=== PATIENT | female | born 1945 | race Caucasian/White ===

== ENCOUNTER 2016-09-28 13:56 | Emergency (ER) | payer MEDICARE ==
[2016-09-28 14:47] LABS: HEMOGLOBIN 12.7 gm/dl (12.3-15.3); RED BLOOD COUNT 4.14 M/UL (4.00-5.10); WHITE BLOOD COUNT 6.2 K/UL (4.5-11.0)
[2016-09-28 15:16] LABS: BUN/CREATININE RATIO 14 (0-10)
== END 2016-09-28 17:40 | disposition home or self-care (01) ==
LOC: ER1 13:56 → EDBD 13:56 → ER1 17:40
PROVIDERS: Family Medicine
DX: I10 Essential (primary) hypertension (principal); Z79.899 Other long term (current) drug therapy
CPT/HCPCS: 36415; 71010; 80053; 82550; 82553; 83874; 84484; 85025; 93005; 99284

== ENCOUNTER → 2021-03-28 | Outpatient (CLI) | payer MEDICARE | LOC: MAMO 12:57 | DX: Z12.31 Encounter for screening mammogram for malignant neoplasm of breast (principal); Z90.710 Acquired absence of both cervix and uterus | CPT/HCPCS: 77063; 77067 ==